=== PATIENT | female | born 1970 | race Two or more races ===

== ENCOUNTER 2021-03-23 14:27 | Emergency (ER) | payer MEDICAID ==
[~2021-03-23] VITALS: Ht 157.5 cm; Wt 63.0 kg
[2021-03-23 14:50] VITALS: BP 14/59
[2021-03-23] MEDS ORDERED: dexamethasone sod phosphate 10mg/ml inj PO STA (15:06)
[2021-03-23] MEDS ORDERED: ALBU8.5H17 IH (15:49)
[2021-03-23] MEDS ORDERED: DEXA6TAB6 PO (15:49)
== END 2021-03-23 16:19 | disposition home or self-care (01) ==
LOC: ER 14:28
DX: U07.1 COVID-19 (principal); R50.9 Fever, unspecified; R51.9 Headache, unspecified; R05 Cough; Z79.899 Other long term (current) drug therapy
CPT/HCPCS: 99283; J1100

== ENCOUNTER 2022-09-11 13:06 | Emergency (ER) | payer MEDICAID ==
[~2022-09-11] VITALS: Ht 167.6 cm; Wt 64.1 kg
[~2022-09-11 13:06] MED LIST: ALBU8.5H17 IH; DEXA6TAB6 PO
--- NOTE | 2022-09-11 16:43 | NUR ---
PT SON CAME TO REGISTRATION TO INFORM THAT PT HAS SUDDEN ONSET OF SUBSTERNAL CHEST PAIN WITH SOB ,ACS PROTOCOL ORDERED.
[2022-09-11 17:02] LABS: LYMPHOCYTES # (AUTO) 0.9 X10'3 (1.1-4.8); MEAN CORPUSCULAR VOLUME 83.8 FL (78-98)
[2022-09-11 17:04] LABS: BASOPHILS % (AUTO) 0.6 % (0-1); EOSINOPHILS % (AUTO) 0.3 % (0-6); HEMATOCRIT 39.1 % (35.0-45.0); HEMOGLOBIN 13.2 g/dl (12.0-16.0); LYMPHOCYTES % (AUTO) 11.6 % (21-51); MEAN CORPUSCULAR HEMOGLOBIN 28.3 PG (27.0-31.0); MEAN CORPUSCULAR HGB CONC 33.8 g/dL (33.0-36.5); MEAN PLATELET VOLUME 9.8 FL (7.4-10.4); MONOCYTES # (AUTO) 0.4 X10'3 (0-0.9); NEUTROPHILS # (AUTO) 6.1 X10'3 (1.8-7.7); NEUTROPHILS % (AUTO) 82.5 % (42-75); PLATELET COUNT 244 X10'3 (140-440); RED BLOOD COUNT 4.67 X10'6 (4.20-5.60); RED CELL DISTRIBUTION WIDTH 12.7 % (11.5-14.5); WHITE BLOOD COUNT 7.4 X10'3 (4.5-11.0)
[2022-09-11 17:13] LABS: ALANINE AMINOTRANSFERASE 112 U/L (12-78); ALBUMIN 3.3 G/DL (3.4-5.0); ALBUMIN/GLOBULIN RATIO 0.8 (1.1-1.5); ALKALINE PHOSPHATASE 212 IU/L (46-116); ANION GAP 13 (8-16); ASPARTATE AMINO TRANSFERASE 173 U/L (10-37); BILIRUBIN,TOTAL 0.9 MG/DL (0.1-1.0); BLOOD UREA NITROGEN 29 MG/DL (7-18); BUN/CREATININE RATIO 22.8 (6.6-38.0); CALCIUM 9.4 MG/DL (8.5-10.1); CHLORIDE 95 MMOL/L (99-107); CREATININE 1.27 MG/DL (0.40-0.90); GLUCOSE 79 MG/DL (70-104); POTASSIUM 5.4 MMOL/L (3.5-5.1); SODIUM 129 MMOL/L (135-145); TOTAL CARBON DIOXIDE 21.4 MMOL/L (24-32); TOTAL PROTEIN 7.6 G/DL (6.4-8.2); eGFR 44 ML/MIN
[2022-09-11] MEDS ORDERED: normal saline 1000ML IV soln IVB ONE ×2 (17:20→18:30)
[2022-09-11] MEDS ORDERED: ONDA-103 PO (17:37)
[2022-09-11] MEDS ORDERED: FLUC100T64 PO (17:37)
[2022-09-11] MEDS ORDERED: PANT40TA54 PO (17:37)
[2022-09-11] MEDS ORDERED: METF-1203 PO (17:37)
[2022-09-11] MEDS ORDERED: insulin regular, human 10 units/0.1 ml syringe IV ONE (17:40)
[2022-09-11] MEDS ORDERED: lactulose 20gm/30ml cup PO ONE (17:40)
[2022-09-11] MEDS ORDERED: dextrose 5%-1/2 normal saline 1,000 ML IV SCH (17:50)
[2022-09-11 17:56] LABS: PLATELET ESTIMATE NORMAL
[2022-09-11 17:57] LABS: LARGE PLATELETS FEW
[2022-09-11 17:58] LABS: STOMATOCYTES 1+
[2022-09-11] MEDS ORDERED: methylPREDNISolone sod succ 125mg/2ml vial IV ONE (18:00)
[2022-09-11 21:09] VITALS: BP 135/86
== END 2022-09-11 21:11 | disposition home or self-care (01) ==
LOC: ER 13:06
DX: E86.0 Dehydration (principal); K75.4 Autoimmune hepatitis; Z79.899 Other long term (current) drug therapy
CPT/HCPCS: 36415; 71045; 74176; 80053; 82140; 82948; 83880; 84484; 85008; 85025; 85610; 93005; 96361; 96374; 96375; 99285; J1815; J2930; J7030; J7042